=== PATIENT | female | born 1995 | race Hispanic/Latino ===

== ENCOUNTER 2023-09-17 11:18 | Inpatient (IN) | payer BC, MEDICAID ==
[2023-10-09] MEDS ORDERED: ePHEDrine Sulfate 50 MG/10 ML VIAL ONE (17:00)
[2023-10-09] MEDS ORDERED: hydrALAZINE 20 MG/ML VIAL SLOW IVP PRN (20:35)
[2023-10-09] MEDS ORDERED: Carboprost 250 MCG/ML AMP IM PRN (20:35)
[2023-10-09] MEDS ORDERED: Promethazine HCl 25 MG/ML VIAL IM PRN (20:35)
[2023-10-09] MEDS ORDERED: Ibuprofen 800 MG TAB PO PRN (20:35)
[2023-10-09] MEDS ORDERED: Tranexamic Acid 1,000 MG/10 ML VIAL IVP PRN (20:35)
[2023-10-09] MEDS ORDERED: Misoprostol 200 MCG TAB PR PRN (20:35)
[2023-10-09] MEDS ORDERED: Lidocaine 1% (PF) 30 ML VIAL SC PRN (20:35)
[2023-10-09] MEDS ORDERED: Acetaminophen 500 MG TAB PO PRN (20:35)
[2023-10-09] MEDS ORDERED: Diphenoxylate HCl/Atropine Tablet PO PRN (20:35)
[2023-10-09] MEDS ORDERED: fentaNYL 50 mcg/mL 1 mL Vial SLOW IVP PRN (20:35)
[2023-10-09] MEDS ORDERED: Methylergonovine 0.2 MG/ML VIAL IM PRN (20:35)
[2023-10-09] MEDS ORDERED: HYDROcodone/Acetaminophen 5/325 mg Tablet PO PRN (20:35)
[2023-10-09] MEDS ORDERED: Ondansetron PF 4 MG/2 ML Vial IVP PRN (20:35)
[2023-10-09 20:37] VITALS: BMI 37.1
[2023-10-09] MEDS ORDERED: Oxytocin 30 units/NS 500 ML 500 ML IV SCH ×3 (20:45)
[2023-10-09] MEDS: Misoprostol 100 MCG TAB PO SCH (21:06)
[2023-10-09 21:15] LABS: Hematocrit 29.8 % (34.9-44.5); Mean Corpuscular HGB CONC 30.2 g/dL (32.0-36.0); Mean Corpuscular Hemoglobin 21.7 pg (27.0-33.0); Mean Corpuscular Volume 71.8 fl (81.6-98.3); Mean Platelet Volume 11.1 fl (7.4-10.4); Platelet Count 352 10x3/uL (150-450); RBC Distribution Width 16.7 % (11.5-14.5); Red Blood Cell (RBC) Count 4.15 10x6/uL (3.90-5.03); White Blood Cell (WBC) Count 9.4 10x3/uL (3.5-10.5)
[2023-10-09 21:46] LABS: Syphilis Antibody Nonreactive (Nonreactive); Syphilis Antibody Index 0.05 S/CO (<1.00 Non-Reactive)
[2023-10-09 21:47] LABS: HBSAg Index 0.16 S/CO (0-0.99); Hep B Surf Ag - L&D Non-Reactive S/CO (NonReactive)
[2023-10-10] MEDS ORDERED: fentaNYL/Ropivacaine Epidural 100 ML ONE (04:04)
[2023-10-10] MEDS: Misoprostol 100 MCG TAB PO SCH ×2 (04:16→10:54)
[2023-10-10] MEDS: Lactated Ringer's 1,000 ML IV SCH ×2 (04:25→04:59)
[2023-10-10] MEDS ORDERED: Lactated Ringer's 500 ML IV PRN (04:45)
[2023-10-10] MEDS ORDERED: fentaNYL 2 mcg/Ropivacaine 0.2% Epidural 100 ML CADD EPIDURAL SCH (04:45)
[2023-10-10] MEDS ORDERED: Promethazine HCl 25 MG/ML VIAL IM PRN (04:45)
[2023-10-10] MEDS ORDERED: Ondansetron PF 4 MG/2 ML Vial IVP PRN ×2 (04:45→10:52)
[2023-10-10] MEDS ORDERED: Naloxone HCl 0.4 mg/ml Vial IVP PRN ×2 (04:45)
[2023-10-10] MEDS ORDERED: Communication Order-Pharmacy FS SCH (04:45)
[2023-10-10] MEDS ORDERED: Acetaminophen 325 MG TAB PO PRN (04:45)
[2023-10-10] MEDS ORDERED: Moisturizing Cream (Eucerin) 113 GM JAR TOP PRN (04:45)
[2023-10-10] MEDS ORDERED: diphenhydrAMINE 50 MG/ML VIAL IVP PRN (04:45)
[2023-10-10] MEDS: ePHEDrine Sulfate 50 MG/10 ML VIAL SLOW IVP PRN ×2 (04:50→05:04)
[2023-10-10] MEDS ORDERED: Lanolin Ointment 7 GM TUBE TOP PRN (10:52)
[2023-10-10] MEDS ORDERED: Bisacodyl 10 MG SUPP PR PRN (10:52)
[2023-10-10] MEDS ORDERED: Benzocaine-Menthol 82.5 ML CAN TOP PRN (10:52)
[2023-10-10] MEDS ORDERED: Milk Of Magnesia 30 ML UDCUP PO PRN (10:52)
[2023-10-10] MEDS ORDERED: hydrALAZINE 20 MG/ML VIAL SLOW IVP PRN (10:52)
[2023-10-10] MEDS ORDERED: HYDROcodone/Acetaminophen 5/325 mg Tablet PO PRN (10:52)
[2023-10-10] MEDS ORDERED: Boostrix 0.5 ML (Tdap) VIAL (>/=7 yrs of age) IM ONE (12:00)
[2023-10-10] MEDS: Ibuprofen 800 MG TAB PO SCH ×2 (13:19→21:42)
[2023-10-10] MEDS: Ferrous Sulfate 325 MG TAB PO SCH (16:38)
[2023-10-10] MEDS: Docusate 100 MG CAP PO SCH (19:59)
[2023-10-11] MEDS: Ibuprofen 800 MG TAB PO SCH ×2 (05:48→14:11)
[2023-10-11 07:37] VITALS: BP 100/52; TEMP 97.8
[2023-10-11] MEDS ORDERED: Prenatal Vitamin 1 TAB PO SCH (09:00)
[2023-10-11] MEDS: Docusate 100 MG CAP PO SCH (09:53)
[2023-10-11] MEDS: Ferrous Sulfate 325 MG TAB PO SCH (09:53)
== END 2023-10-11 16:40 | disposition home or self-care (01) | DRG 807 ==
LOC: CSHLD 10-09 20:14 → CSHPED 10-10 11:30
PROVIDERS: ADMIT Family Medicine; ATTEND Family Medicine
PROC: 10E0XZZ Delivery of Products of Conception, External Approach (ICD-10-PCS; principal; 2023-10-10)
PROC: 0KQM0ZZ Repair Perineum Muscle, Open Approach (ICD-10-PCS; 2023-10-10)
PROC: 10907ZC Drainage of Amniotic Fluid, Therapeutic from Products of Conception, Via Natural or Artificial Opening (ICD-10-PCS; 2023-10-10)
PROC: 3E0P7VZ Introduction of Hormone into Female Reproductive, Via Natural or Artificial Opening (ICD-10-PCS; 2023-10-10)
DX: O70.1 Second degree perineal laceration during delivery (principal); Z37.0 Single live birth; Z3A.39 39 weeks gestation of pregnancy
CPT/HCPCS: 36415; 85027; 86780; 86850; 86900; 86901; 87340; J2590; J7120